=== PATIENT | female | born 1960 | race Caucasian/White ===

== ENCOUNTER 2019-10-12 07:35 | Emergency (ER) | payer OTHER ==
[~2019-10-12] VITALS: Ht 162.6 cm; Wt 74.8 kg
--- NOTE | 2019-10-12 07:46 | NUR ---
pt ambulatory to er bed 03 c/o epigastric pain x 1 week and diarrhea for the past 4 days. pt denies any fever, or chest pain. gowned and placed on monitor. vss awaiting md arrington.
--- NOTE | 2019-10-12 07:49 | NUR ---
dr bolanos at bedside for eval.
[2019-10-12] MEDS ORDERED: MORPHINE SULFATE INJ 4 MG/ML DISP.SYRIN ONE (07:54)
[2019-10-12] MEDS ORDERED: ONDANSETRON HCL/PF 4 MG/2 ML VIAL ONE (07:54)
--- NOTE | 2019-10-12 07:57 | NUR ---
iv line started blood drawn and sent to lab.
[2019-10-12] MEDS ORDERED: MORPHINE SULFATE INJ 2 MG/ML DISP.SYRIN IV ONE (08:00)
[2019-10-12] MEDS ORDERED: ONDANSETRON HCL/PF 4 MG/2 ML VIAL IVP ONE (08:00)
[2019-10-12] MEDS ORDERED: IV NS 0.9% 1,000 ML BAG IV ONE (08:00)
[2019-10-12 08:09] LABS: APPEARANCE,URINE Clear (CLEAR); BILIRUBIN,URINE Negative (NEGATIVE); BLOOD, URINE Trace-intact Ery/uL (NEGATIVE); COLOR,URINE Yellow (YELLOW); KETONES,URINE Negative (NEGATIVE); LEUKOCYTE ESTERASE ,URINE Negative (NEGATIVE); NITRITE, URINE Negative (NEGATIVE); PH,URINE 6.5 (5.0-8.0); PROTEIN,URINE Negative (NEGATIVE); UGLUCOSE Negative (NEGATIVE); UROBILINOGEN,URINE 0.2 EU/dL (0.2)
[2019-10-12 08:18] LABS: OCCULT BLOOD STOOL NEGATIVE (NEGATIVE)
[2019-10-12 08:26] LABS: ALANINE AMINOTRANSFERASE 22 U/L (12-78); ALBUMIN 3.8 g/dL (3.4-5.0); ALKALINE PHOSPHATASE 87 U/L (46-116); ASPARTATE AMINOTRANSFERASE 18 U/L (15-37); BILIRUBIN,DIRECT 0.1 mg/dL (0.0-0.2); BILIRUBIN,TOTAL 0.3 mg/dL (0.2-1.0); CALCIUM, SERUM 9.3 mg/dL (8.5-10.1); CARBON DIOXIDE 31 mmol/L (21-32); CHLORIDE 104 mmol/L (98-107); CREATININE 0.9 mg/dL (0.6-1.3); GLUCOSE 84 mg/dL (74-106); LIPASE 53 U/L (73-393); POTASSIUM 3.7 mmol/L (3.5-5.1); SODIUM SERUM 140 mmol/L (136-145); TOTAL PROTEIN, SERUM 7.4 g/dL (6.4-8.2); UREA NITROGEN, BLOOD 13 mg/dL (7-18)
[2019-10-12 08:31] LABS: BASOPHILS % (AUTO) 0.6 % (0.0-2.0); EOSINOPHILS % (AUTO) 1.6 % (0.0-6.0); HEMATOCRIT 43 % (33-45); HEMOGLOBIN 14.2 g/dL (11.5-14.8); LYMPHOCYTES # (AUTO) 1.1 /CMM (0.8-4.8); LYMPHOCYTES % (AUTO) 16.2 % (20.0-44.0); MEAN CORPUSCULAR HGB CONC 33 g/dl (31.0-36.0); MEAN CORPUSCULAR VOLUME 92 fL (82-100); MONOCYTES # (AUTO) 0.4 /CMM (0.1-1.30); MONOCYTES % (AUTO) 6.6 % (2.0-12.0); NEUTROPHILS # (AUTO) 5.1 /CMM (1.8-8.9); PLATELET COUNT (AUTO) 259 /CMM (150-450); RED BLOOD CELL COUNT(AUTO) 4.65 MIL/uL (4.0-5.2); WHITE BLOOD COUNT (AUTO) 6.7 K/uL (4.3-11.0)
[2019-10-12 08:32] LABS: BACTERIA,URINE None seen /HPF (None Seen); RBC,URINE 0-2 /HPF (0-2); SQUAMOUS EPITHELIAL CELL,UR Few /HPF (None Seen); WBC,URINE 0-2 /HPF (0-3)
[2019-10-12 09:33] VITALS: BP 128/80
--- NOTE | 2019-10-12 09:33 | NUR ---
Patient discharged to home in stable condition. Written and verbal after care instructions given. Patient verbalizes understanding of instruction.IV removed. Catheter intact and site benign. Pressure and 4x4 applied to site. No bleeding noted.
== END 2019-10-12 09:33 | disposition home or self-care (01) ==
LOC: ER 07:45
DX: K52.9 Noninfective gastroenteritis and colitis, unspecified (principal); I45.10 Unspecified right bundle-branch block; Z96.651 Presence of right artificial knee joint; Z88.1 Allergy status to other antibiotic agents; K44.9 Diaphragmatic hernia without obstruction or gangrene; K80.20 Calculus of gallbladder without cholecystitis without obstruction; Z96.643 Presence of artificial hip joint, bilateral; M51.36 Other intervertebral disc degeneration, lumbar region; Z20.828 Contact with and (suspected) exposure to other viral communicable diseases
CPT/HCPCS: 36415; 74176; 80048; 80076; 81001; 82272; 83690; 84484; 85025; 93005; 96361; 96374; 96375; 99285; J2270; J2405; J7030; 81000-TC

== ENCOUNTER 2019-10-15 09:24 | Emergency (ER) | payer OTHER ==
[~2019-10-15] VITALS: Ht 165.1 cm; Wt 69.9 kg
--- NOTE | 2019-10-15 09:36 | NUR ---
PT TO ER BED 11 C/O MIDSTERNAL CHEST AND EPIGASTRIC PAIN SINCE LAST NIGHT. GOWNED AND PLACED ON MONITOR. NSR. STABLE VITALS. AWAITING MD CHONG.
--- NOTE | 2019-10-15 09:42 | NUR ---
IV LINE STARTED BLOOD DRAWN AND SENT TO LAB.
--- NOTE | 2019-10-15 09:50 | NUR ---
DR LUTZ AT BEDSIDE FOR EVAL.
[2019-10-15 10:04] LABS: BASOPHILS % (AUTO) 0.7 % (0.0-2.0); EOSINOPHILS % (AUTO) 2.1 % (0.0-6.0); HEMATOCRIT 42 % (33-45); HEMOGLOBIN 13.9 g/dL (11.5-14.8); LYMPHOCYTES # (AUTO) 1.5 /CMM (0.8-4.8); LYMPHOCYTES % (AUTO) 21.7 % (20.0-44.0); MEAN CORPUSCULAR HGB CONC 34 g/dl (31.0-36.0); MEAN CORPUSCULAR VOLUME 92 fL (82-100); MONOCYTES # (AUTO) 0.4 /CMM (0.1-1.30); MONOCYTES % (AUTO) 6.3 % (2.0-12.0); NEUTROPHILS # (AUTO) 4.8 /CMM (1.8-8.9); NEUTROPHILS % (AUTO) 69.2 % (43.0-81.0); PLATELET COUNT (AUTO) 247 /CMM (150-450); RED BLOOD CELL COUNT(AUTO) 4.55 MIL/uL (4.0-5.2); WHITE BLOOD COUNT (AUTO) 6.9 K/uL (4.3-11.0)
[2019-10-15 10:10] LABS: CALCIUM, SERUM 9.2 mg/dL (8.5-10.1); CARBON DIOXIDE 29 mmol/L (21-32); CHLORIDE 101 mmol/L (98-107); GLUCOSE 140 mg/dL (74-106); POTASSIUM 3.8 mmol/L (3.5-5.1); SODIUM SERUM 138 mmol/L (136-145); UREA NITROGEN, BLOOD 16 mg/dL (7-18)
[2019-10-15] MEDS ORDERED: HYDROCODONE/APAP 5/325MG 1 EACH TABLET ONE (11:57)
[2019-10-15] MEDS ORDERED: ONDANSETRON 4 MG TAB.RAPDIS ONE (11:58)
[2019-10-15] MEDS ORDERED: ONDANSETRON 4 MG TAB.RAPDIS PO ONE (12:00)
[2019-10-15] MEDS ORDERED: HYDROCODONE/APAP 5/325MG 1 EACH TABLET PO ONE (12:00)
[2019-10-15] MEDS ORDERED: MORPHINE SULFATE INJ 4 MG/ML DISP.SYRIN ONE (12:03)
[2019-10-15] MEDS ORDERED: MORPHINE SULFATE INJ 2 MG/ML DISP.SYRIN IV ONE (12:30)
--- NOTE | 2019-10-15 12:32 | NUR ---
Cedric vo in [facility] - 10/15/19 at 1249 by MARYJANE [employer] MECHANIC BACK AT BEDSIDE FOR REPEAT TROPONIN DRAW.
--- NOTE | 2019-10-15 12:45 | NUR ---
DELINQUENT TAX COLLECTOR BACK AT BEDSIDE FOR REPEAT TROPONIN DRAW.
[2019-10-15 13:29] VITALS: BP 142/84
== END 2019-10-15 13:30 | disposition home or self-care (01) ==
LOC: ER 09:27
DX: R07.89 Other chest pain (principal); I45.10 Unspecified right bundle-branch block; Z96.651 Presence of right artificial knee joint; Z88.1 Allergy status to other antibiotic agents
CPT/HCPCS: 36415; 71045; 80048; 84484 ×2; 85025; 93005 ×4; 96374; 99285; J2270; Q0162

== ENCOUNTER 2023-12-21 10:41 | Emergency (ER) | payer OTHER ==
[~2023-12-21] VITALS: Ht 160 cm; Wt 72.1 kg
[2023-12-21 11:48] LABS: BASOPHILS % (AUTO) 0.4 % (0.0-2.0); EOSINOPHILS % (AUTO) 0.4 % (0.0-6.0); HEMATOCRIT 39 % (33-45); HEMOGLOBIN 13.2 g/dL (11.5-14.8); LYMPHOCYTES # (AUTO) 1.1 K/uL (0.8-4.8); LYMPHOCYTES % (AUTO) 16.1 % (20.0-44.0); MEAN CORPUSCULAR HEMOGLOBIN 33 PG (26.0-33.0); MEAN CORPUSCULAR HGB CONC 34 g/dl (31.0-36.0); MEAN CORPUSCULAR VOLUME 97 fL (82-100); MONOCYTES # (AUTO) 0.6 K/uL (0.1-1.30); MONOCYTES % (AUTO) 8.2 % (2.0-12.0); NEUTROPHILS # (AUTO) 5.2 K/uL (1.8-8.9); NEUTROPHILS % (AUTO) 74.9 % (43.0-81.0); PLATELET COUNT (AUTO) 255 K/uL (150-450); RED BLOOD CELL COUNT(AUTO) 4.01 MIL/uL (4.0-5.2); RED CELL DISTRIBUTION WIDTH 14.9 % (11.5-15.0)
[2023-12-21 11:55] LABS: CALCIUM, SERUM 9.6 mg/dL (8.5-10.1); CREATININE 0.8 mg/dL (0.6-1.3); POTASSIUM 3.7 mmol/L (3.5-5.1)
[2023-12-21] MEDS ORDERED: CT SWABBABLE VALVE TRANS SET 1 EA INFUS.SET MC ONE (12:39)
[2023-12-21] MEDS ORDERED: IOHEXOL-300 100 ML VIAL IV ONE (12:39)
[2023-12-21] MEDS ORDERED: IV NS 0.9% 250 ML IV ONE (12:40)
[2023-12-21] MEDS ORDERED: SULF1TAB48 PO (14:14)
[2023-12-21] MEDS ORDERED: CEPHALEXIN MONOHYDRATE 250 MG CAPSULE PO ONE (14:14)
[2023-12-21] MEDS ORDERED: CEPH250C PO (14:14)
[2023-12-21] MEDS ORDERED: SULFAMETH/TRIMETH 800/160 MG 1 UDTAB TABLET ONE (14:15)
[2023-12-21] MEDS: SULFAMETH/TRIMETH 800/160 MG 1 UDTAB TABLET PO ONE (14:26)
[2023-12-21] MEDS: CEPHALEXIN MONOHYDRATE 250 MG CAPSULE PO ONE (14:26)
[2023-12-21 15:22] VITALS: BP 128/86; TEMP 98.3; O2SAT 98
== END 2023-12-21 15:24 | disposition home or self-care (01) ==
LOC: ER 11:23
DX: L03.211 Cellulitis of face (principal); Z88.1 Allergy status to other antibiotic agents
CPT/HCPCS: 99285; 70487; 85025; 80048; 36415; J7050; Q9967

== ENCOUNTER 2024-01-15 10:47 | Emergency (ER) | payer OTHER ==
[~2024-01-15] VITALS: Ht 160 cm; Wt 70.3 kg
[~2024-01-15 10:47] MED LIST: CEPH250C PO; SULF1TAB48 PO
[2024-01-15 10:56] VITALS: TEMP 98.3
[2024-01-15] MEDS ORDERED: ACETAMINOPHEN ES 500 MG TABLET ONE (11:31)
[2024-01-15] MEDS ORDERED: PROCHLORPERAZINE EDISYLATE 10 MG/2 ML VIAL ONE (11:31)
[2024-01-15] MEDS ORDERED: diphenhydrAMINE HCL 50 MG/ML VIAL ONE (11:31)
[2024-01-15] MEDS: IV NS 0.9% 1,000 ML BAG IV ONE (11:35)
[2024-01-15] MEDS: ACETAMINOPHEN ES 500 MG TABLET PO ONE (11:37)
[2024-01-15] MEDS: diphenhydrAMINE HCL 50 MG/ML VIAL IV ONE (11:45)
[2024-01-15 11:47] LABS: EOSINOPHILS % (AUTO) 0.6 % (0.0-6.0); HEMATOCRIT 36 % (33-45); HEMOGLOBIN 12.3 g/dL (11.5-14.8); LYMPHOCYTES # (AUTO) 0.4 K/uL (0.8-4.8); LYMPHOCYTES % (AUTO) 16.3 % (20.0-44.0); MEAN CORPUSCULAR HEMOGLOBIN 33 PG (26.0-33.0); MEAN CORPUSCULAR HGB CONC 34 g/dl (31.0-36.0); MEAN CORPUSCULAR VOLUME 98 fL (82-100); MONOCYTES # (AUTO) 0.5 K/uL (0.1-1.30); MONOCYTES % (AUTO) 18.9 % (2.0-12.0); NEUTROPHILS # (AUTO) 1.7 K/uL (1.8-8.9); NEUTROPHILS % (AUTO) 63.2 % (43.0-81.0); PLATELET COUNT (AUTO) 169 K/uL (150-450); RED BLOOD CELL COUNT(AUTO) 3.68 MIL/uL (4.0-5.2); RED CELL DISTRIBUTION WIDTH 15.6 % (11.5-15.0); WHITE BLOOD COUNT (AUTO) 2.7 K/uL (4.3-11.0)
[2024-01-15] MEDS: PROCHLORPERAZINE EDISYLATE 10 MG/2 ML VIAL IVP ONE (11:47)
[2024-01-15 11:54] LABS: CALCIUM, SERUM 9.3 mg/dL (8.5-10.1); CREATININE 0.7 mg/dL (0.6-1.3); POTASSIUM 3.3 mmol/L (3.5-5.1)
[2024-01-15 12:18] LABS: HYPOCHROMASIA 1+; LYMPHOCYTES % (MANUAL) 15 % (16-48); MONOCYTES % (MANUAL) 19 % (0-11.0); NEUTROPHILS % (MANUAL) 66 (42-76); PLATELET ESTIMATE ADEQUATE
[2024-01-15 12:19] LABS: ANISOCYTOSIS 1+
[2024-01-15] MEDS ORDERED: hydrALAZINE HCL IV 20 MG VIAL ONE (13:25)
[2024-01-15] MEDS: hydrALAZINE HCL IV 20 MG VIAL IV ONE (13:30)
[2024-01-15] MEDS ORDERED: SUMA100T16 PO (13:43)
[2024-01-15] MEDS ORDERED: NAPR500T6 PO (13:43)
[2024-01-15 14:08] VITALS: BP 168/96; O2SAT 97
== END 2024-01-15 14:00 | disposition home or self-care (01) ==
LOC: ER 10:55
DX: I10 Essential (primary) hypertension (principal); R51.9 Headache, unspecified; G89.29 Other chronic pain; Z96.651 Presence of right artificial knee joint; Z88.8 Allergy status to other drugs, medicaments and biological substances
CPT/HCPCS: 99284; 96374; 96361; 96375 ×2; 93005; 85025; 80048; 36415; 85007; J0780; J1200; J0360; J7030